=== PATIENT | male | born 1955 | race Caucasian/White ===

== ENCOUNTER 2019-12-27 17:32 | Emergency (ER) | payer MEDICARE, OTHER, SELFPAY ==
[2019-12-27 17:43] VITALS: BP 215/98; PULSE 89; RESP 12; TEMP 36.1; O2SAT 100; BMI 23.6
[2019-12-27] MEDS: LIDOCAINE 2% (UROJET) 5 ML GEL TOP (18:30)
--- NOTE | 2019-12-27 18:44 | ED_ITS ---
HPI - Male Genitourinary General Chief complaint: Urogenital-Male Stated complaint: trouble urinating Time Seen by Provider: 12/27/19 18:09 Source: patient and family Mode of arrival: Ambulatory History of Present Illness HPI Narrative: Patient here with . Complaints of urinary retention. Had a UroLift procedure done 2 days ago in [place] with Dr. zachary zelaya for Urology. Was instructed to remove the catheter yesterday at home. Since then had urinary retention. Blood pressure noted. No history of high blood pressure. Will recheck now that he has significant relief after insertion of Joe catheter. 800 mL out of urine. No complaints at this time. Currently is not on any antibiotics. Related Data Previous Rx's Medication Instructions Recorded tamsulosin 0.4 mg PO BEDTIME #7 cap 12/27/19 Allergies Allergy/AdvReac Type Severity Reaction Status Date / Time No Known Drug Allergies Allergy Verified 12/27/19 17:47 Review of Systems Review of Systems Narrative: GENERAL: Denies chills, fatigue, malaise, fever, sweats. HEENT: Denies sinus pain, ear pain, sore throat, difficulty swallowing, dizziness. RESPIRATORY: Denies dyspnea, cough, wheezing, hemoptysis, sputum. CARDIOVASCULAR: Denies chest pain, palpitations, orthopnea, edema, GASTROINTESTINAL: Denies nausea, vomiting, complains abdominal pain, denies diarrhea, constipation, melena. : Denies dysuria, frequency, incontinence, hematuria, complains of urinary ret ention. MUSCULOSKELETAL: denies weakness, joint pain, or bony pain SKIN: Denies rash, skin lesions NEUROLOGIC: Denies weakness, headache, numbness, change in speech, confusion, seizures, incoordination. PSYCHIATRIC: No concerning psychosocial issues. ROS Unobtainable: All systems reviewed & are unremarkable except as noted in HPI and below Patient History Social History Smoking Status: Never smoker Smoking Status: Never smoker Substance Use Type: does not use Exam Narrative Exam Narrative: GENERAL: patient appears stated age. Well-nourished, well- developed patient, in no distress, not toxic, pants are off HEAD: Atraumatic. Normocephalic. EYES: Pupils equal round and reactive. Extraocular motions intact. No scleral icterus. No injection or drainage. ENT: Nose without bleeding, purulent drainage. Throat without erythema, tonsillar hypertrophy or exudate. Airway patent. NECK: Trachea midline. Non tender CARDIOVASCULAR: Regular rate and rhythm without murmurs, gallops, or rubs. RESPIRATORY: Clear to auscultation. Breath sounds equal bilaterally. No wheezes, rales, or rhonchi. GASTROINTESTINAL: Abdomen soft, non-tender, nondistended. : Joe catheter in place. No blood at meatus. Nontender suprapubic region. 800 mL of urine in the Joe catheter bag EXTREMITIES: No edema or joint tenderness. BACK: Nontender without deformity or crepitance. No flank tenderness. NEURO: AOx4. SKIN: No rash or erythema of visible areas PSYCH: Not anxious, is cooperative Initial Vital Signs Initial Vital Signs: Vital Signs Temperature 97.0 F L 12/27/19 17:43 Pulse Rate 89 12/27/19 17:43 Respiratory Rate 12 12/27/19 17:43 Blood Pressure 215/98 H 12/27/19 17:43 Pulse Oximetry 100 12/27/19 17:43 Course Orders Ordered: ED Orders 12/27/19 18:35 Urinalysis and Microscopic Stat Discontinued Medications Ciprofloxacin (Cipro) 500 mg PO NOW ONE Stop: 12/27/19 19:57 Last Admin: 12/27/19 20:34 Dose: 500 mg Documented by: VIVIANA Lidocaine HCl (Urojet) 5 ml TOP NOW ONE Stop: 12/27/19 17:49 Last Admin: 12/27/19 18:30 Dose: 5 ml Documented by: IDANIA Tamsulosin HCl (Flomax) 0.4 mg PO NOW ONE Stop: 12/27/19 20:04 Last Admin: 12/27/19 20:34 Dose: 0.4 mg Documented by: VIVIANA Reevaluation(s) Reevaluation #1: Blood pressure improved. Pain-free at this time 146/79 Time: 20:00 Consultations Consultation #1: Spoke with Urology on-call , dr powell, give 1 dose of Cipro and follow up on Monday Time: 20:01 Vital Signs Vital signs: Vital Signs - 8 hr 12/27/19 20:37 Temperature 98.2 F Pulse Rate 78 Respiratory Rate 16 Blood Pressure 140/79 Pulse Oximetry 98 MDM - Male Genitourinary Differential Diagnosis Differential diagnosis: Likely urinary tract infection, acute retention of urine and other Lab Data Labs: Lab Results 12/27/19 Range/Units 18:35 Urine Color [place] Urine Appearance Clear Urine pH TNP Ur Specific [place] TNP Urine Protein TNP Urine Glucose (UA) TNP Urine Ketones TNP Urine Occult Blood TNP Urine Nitrate TNP Urine Bilirubin TNP Urine Urobilinogen TNP Ur Leukocyte Esterase TNP Urine RBC 5-10/hpf H (0-5/HPF) Urine WBC 1-5/hpf (0-5/HPF) Ur Squamous Epith Cells 0-1 /hpf (0-5/HPF) Amorphous Sediment 1+ Urine Bacteria Occasional (0-1) (None) Ur Culture Indicated? Cult not indicated MDM Narrative Medical decision making narrative: appropriate for d/c...has f/u on monday Discharge Plan Departure Patient Disposition: Home Clinical Impression: Acute retention of urine Discharge Date/Time: 12/27/19 20:40 Instructions: How to Care for Your Joe Catheter -- Male, DI for Urinary Retention in Men Activity Restrictions/Additional Instructions: Call your urologist office on Monday for office recheck and instructions how to remove the Joe catheter. Return if worse. Keep well hydrated. Return if any questions concerns Prescriptions: New tamsulosin 0.4 mg capsule 0.4 mg PO BEDTIME Qty: 7 RF: 0 Referrals: Tommy Clark MD [Primary Care Provider] -
[2019-12-27 19:12] LABS: Appearance Urine UA CLEAR
[2019-12-27 19:13] LABS: Color Urine UA ORANGE
[2019-12-27 19:20] LABS: Amorphous Sediment Urine 1+; Bacteria Urine Occasional (0-1); RBC Urine 5-10/HPF (0-5/HPF); Squamous Epithelial Cell Urine 0-1 /HPF (0-5/HPF); WBC Urine 1-5/HPF (0-5/HPF)
[2019-12-27 19:21] LABS: Culture Indicated Urine Cult Not Indicated
[2019-12-27] MEDS: TAMSULOSIN 0.4 MG CAPSULE PO (20:34)
[2019-12-27] MEDS: CIPROFLOXACIN 500 MG TABLET PO (20:34)
[2019-12-27 20:37] VITALS: BP 140/79; PULSE 78; RESP 16; TEMP 36.8; O2SAT 98
--- NOTE | 2019-12-27 20:38 | PC.NURSE ---
Joe bag changed to leg bag prior to discharge.
== END 2019-12-27 20:40 | disposition home or self-care (01) ==
PROVIDERS: Emergency Provider Emergency Medicine; PCP Urology
DX: R33.9 Retention of urine, unspecified (principal)
CPT/HCPCS: 51701; 51798; 81001; 99283; 99284

== ENCOUNTER → 2023-04-10 15:02 | Outpatient (CLI) | payer MEDICARE, OTHER, SELFPAY ==
[2023-04-10 18:08] LABS: Prostate Specific Antigen Scrn 6.62 ng/mL (0.1-4.0)
== END ==
PROVIDERS: Referring Provider Urology; Visit Provider Urology
DX: Z12.5 Encounter for screening for malignant neoplasm of prostate (principal); N39.41 Urge incontinence; K59.00 Constipation, unspecified; R35.1 Nocturia; R35.0 Frequency of micturition; R39.9 Unspecified symptoms and signs involving the genitourinary system; Z77.22 Contact with and (suspected) exposure to environmental tobacco smoke (acute) (chronic); Z87.442 Personal history of urinary calculi; Z98.890 Other specified postprocedural states; Z87.19 Personal history of other diseases of the digestive system
CPT/HCPCS: 36415; 81002; 99214; G0103

== ENCOUNTER → 2023-04-12 12:19 | Outpatient (CLI) | payer MEDICARE, OTHER, SELFPAY ==
[2023-04-15 00:56] LABS: PSA Free % 12.3 % (.)
== END ==
LOC: LAB 12:21
PROVIDERS: PCP Student in an Organized Health Care Education/Training Program; Referring Provider Urology; Visit Provider Urology
DX: Z98.890 Other specified postprocedural states (principal); R97.20 Elevated prostate specific antigen [PSA]
CPT/HCPCS: 36415; 84153; 84154

== ENCOUNTER 2023-04-18 07:46 | Day surgery (SDC) | payer MEDICARE, OTHER, SELFPAY ==
[2023-04-13 14:47] VITALS: BMI 23.6
[2023-04-18 08:03] VITALS: BMI 23.6
[2023-04-18 08:23] VITALS: BP 153/88; PULSE 66; RESP 12; TEMP 36.6; O2SAT 100
[2023-04-18] MEDS: LACTATED RINGERS 1,000 ML 42 ML IV (08:24)
[2023-04-18] MEDS: ACETAMINOPHEN 325 MG TABLET 975 MG PO (08:26)
--- NOTE | 2023-04-18 09:04 | PM.PREOP ---
Pre-operative Note COVID-19 COVID-19 status: Not tested Interval Note History & Physical reviewed/Exam performed by Physician: Yes Changes to H&P: No
[2023-04-18] MEDS: CEFAZOLIN 2 GM/100 ML PREMIX 100 ML IV (09:28)
--- NOTE | 2023-04-18 09:35 | SUR.OPER ---
Lithotomy on padded OR bed, head on pillow, arms secured on padded arm boards at <90 degrees abduction. Legs secured in padded yellow fins stirrups.
--- NOTE | 2023-04-18 09:43 | P.OP_ITS ---
Procedure & Clinicians Procedure: Cystoscopy Same procedure as scheduled: Yes Indications: This 67-year-old male who has had a UroLift x2 has had worsening lower urinary tract symptoms including outlet obstructive symptoms and irritative symptoms. He voiced intolerance of office cystoscopy that it is incredibly painful and he presents at this time for cystoscopy under anesthesia. This is done to evaluate his lower urinary tract given his previous procedures and with an eye toward future interventions. Surgeon: Suresh Jeffers Click Yes if Unassisted: Yes Anesthesia Type: General Operative Notes Findings: Findings: Urethral meatus was normal though too small to accept the 22 [place] scope so was dilated to 26 [place]. The urethra was normal along its length the sphincter was well coapted the prostate itself exhibited moderate obstructive character with a median lobe. Ureteral orifices in normal position with clear efflux. There was severe trabeculation banding diverticula cellules and in the floor of the bladder almost a neurogenic appearance. No mucosal lesions or abnormalities were noted, no stones, no fistula. Closure Type: not applicable Specimen(s): none sent Prosthetic devices, grafts, tissues, transplants, or devices: None Estimated Blood Loss (mL): 0 Blood products transfused: none Procedure in detail: Procedure in detail: After informed consent was obtained, the patient was identified brought the operating room and placed in supine position on table where anesthesia was induced maintained. Ensuring an adequate level of anesthesia of the patient was transitioned to the lithotomy position where he was prepped, draped,. For Transurethral procedure. After prepping, draping, ensuring an adequate level anesthesia and time-out and administration of antibiotics and attempt was made to pass a 22 [place] cystoscope through the urethra. The meatus was too small and was gently dilated from 20-26 [place]. Then it easily accepted the scope the scope was then passed through the urethra prostate and into the bladder where cystoscopy was performed with the 30 and 70 degree lens. With the findings in hand the bladder was drained the scope was removed and the patient was awakened having tolerated the procedure well. He will be transferred to the postanesthesia care unit for recovery and then follow-up my office in approximately 10 days. There were no complications. Complications: none Post-operative Condition: stable Disposition: PACU Plan for aftercare: Follow-up my office in approximately 10 days to discuss findings
[2023-04-18 09:52] VITALS: BP 103/57; PULSE 68; RESP 12; TEMP 36.4; O2SAT 97
[2023-04-18 09:57] VITALS: BP 114/67; PULSE 67; RESP 12; TEMP 36.4; O2SAT 98
[2023-04-18 10:02] VITALS: BP 101/61; PULSE 68; RESP 14; TEMP 36.4; O2SAT 98
[2023-04-18 10:18] VITALS: BP 131/75; PULSE 62; RESP 18; TEMP 36.4; O2SAT 99
== END 2023-04-18 10:35 | disposition home or self-care (01) ==
PROVIDERS: PCP Student in an Organized Health Care Education/Training Program; Referring Provider Urology; Visit Provider Urology
PROC: 0TJB8ZZ Inspection of Bladder, Via Natural or Artificial Opening Endoscopic (ICD-10-PCS; CPT 52000; principal; 2023-04-18 09:15)
DX: N40.1 Benign prostatic hyperplasia with lower urinary tract symptoms (principal); N39.41 Urge incontinence; R35.0 Frequency of micturition; Z77.22 Contact with and (suspected) exposure to environmental tobacco smoke (acute) (chronic); N35.911 Unspecified urethral stricture, male, meatal; N32.3 Diverticulum of bladder
CPT/HCPCS: 52281; J0690; J1100; J2405; J2704; J3010

== ENCOUNTER → 2023-05-05 13:04 | Outpatient (CLI) | payer MEDICARE, OTHER, SELFPAY ==
--- NOTE | 2023-05-05 13:05 | DI.MRI.S_ITS ---
PROCEDURE: MR PELVIC PROSTATE PROTOCOL INDICATIONS: Elevated PSA TECHNIQUE: Coronal HASTE, axial T1 FSE with fat saturation, 3-plane nonbreath-hold T2 FSE. After the administration of contrast, dynamic axial, delayed axial and coronal VIBE or 2-D FLASH with fat saturation through the pelvis. Diffusion weighted imaging and ADC was performed. COMPARISON: None. FINDINGS: Image quality: Nondiagnostic diffusion-weighted images due to metallic artifact from Urolift device. Prostate: Prostate measures 4.7 x 3.4 x 4.5 cm. Estimated volume is 37 cc. Transitional zone heterogenous nodules are present, either well encapsulated or mostly encapsulated, compatible with PI-RADS 1 or 2 likely BPH nodules. Mildly T2 hypointense heterogenous striated appearance of the peripheral zone is commonly seen with current or prior prostatitis, PI-RADS 2. These findings can obscure small cancers. The seminal vesicles appear clear. Genitourinary system: Trabeculated bladder with small diverticula, likely related to chronic obstruction. Bowel and peritoneum: Colonic diverticula. No pathologic ascites. Nodes and vessels: No aneurysmal vessel is identified. Soft tissues: Suspected small fat containing inguinal hernias. Bones: Degenerative changes. IMPRESSION: Nondiagnostic diffusion images due to artifact from Urolift device. Within the limitations of only using T2 weighted MR images, overall classification is PI-RADS 2. Suspected sequelae of BPH and prostatitis. Continued PSA surveillance and repeat MRI may be obtained as clinically indicated Other findings as above. Dictated by: Wes Dalal M.D. on 05/05/2023 at 14:32 Approved by: Wes Dalal M.D. on 05/05/2023 at 14:38
== END ==
PROVIDERS: PCP Student in an Organized Health Care Education/Training Program; Referring Provider Urology; Visit Provider Urology
DX: N40.2 Nodular prostate without lower urinary tract symptoms (principal); K57.90 Diverticulosis of intestine, part unspecified, without perforation or abscess without bleeding; N32.89 Other specified disorders of bladder; N32.3 Diverticulum of bladder; R97.20 Elevated prostate specific antigen [PSA]; N39.41 Urge incontinence; R39.9 Unspecified symptoms and signs involving the genitourinary system; Z87.442 Personal history of urinary calculi; Z77.22 Contact with and (suspected) exposure to environmental tobacco smoke (acute) (chronic); Z98.890 Other specified postprocedural states
CPT/HCPCS: 72197; 99214

== ENCOUNTER → 2023-07-27 14:19 | Outpatient (CLI) | payer MEDICARE, OTHER, SELFPAY | LOC: LAB 14:20 | PROVIDERS: PCP Family Medicine Sports Medicine; Referring Provider Urology; Visit Provider Urology | DX: R97.20 Elevated prostate specific antigen [PSA] (principal) | CPT/HCPCS: 84153; 84154 ==

== ENCOUNTER → 2023-09-06 14:08 | Outpatient (CLI) | payer MEDICARE, OTHER, SELFPAY | PROVIDERS: PCP Family Medicine Sports Medicine; Visit Provider Nurse Practitioner Family | DX: R30.0 Dysuria (principal) | CPT/HCPCS: 87077; 87086 ==

== ENCOUNTER → 2023-09-26 14:12 | Outpatient (CLI) | payer MEDICARE, OTHER, SELFPAY | PROVIDERS: PCP Family Medicine Sports Medicine; Visit Provider Urology | DX: N32.81 Overactive bladder (principal); N41.0 Acute prostatitis; N30.00 Acute cystitis without hematuria; R97.20 Elevated prostate specific antigen [PSA]; R30.0 Dysuria; R39.9 Unspecified symptoms and signs involving the genitourinary system; Z87.442 Personal history of urinary calculi; Z98.890 Other specified postprocedural states; Z77.22 Contact with and (suspected) exposure to environmental tobacco smoke (acute) (chronic) | CPT/HCPCS: 51798; 81002; 87086; 99214 ==

== ENCOUNTER → 2023-11-16 11:30 | Outpatient (CLI) | payer MEDICARE, OTHER, SELFPAY ==
[2023-11-17 13:15] LABS: PSA Free % 11.5 % (.); PSA, Total 5.4 ng/mL (0.0-4.0)
== END ==
PROVIDERS: PCP Family Medicine Sports Medicine; Referring Provider Urology; Visit Provider Urology
DX: R97.20 Elevated prostate specific antigen [PSA] (principal)
CPT/HCPCS: 36415; 84153; 84154

== ENCOUNTER → 2024-01-18 13:38 | Outpatient (CLI) | payer MEDICARE, OTHER, SELFPAY | PROVIDERS: PCP Family Medicine Sports Medicine; Visit Provider Urology | DX: R39.9 Unspecified symptoms and signs involving the genitourinary system (principal) | CPT/HCPCS: 87086 ==

== ENCOUNTER → 2024-05-14 12:56 | Outpatient (CLI) | payer MEDICARE, OTHER, SELFPAY ==
[2024-05-14 14:55] LABS: Prostate Specific Antigen 5.24 ng/mL (0.10-4.00)
== END ==
PROVIDERS: PCP Family Medicine Sports Medicine; Referring Provider Urology; Visit Provider Urology
DX: R97.20 Elevated prostate specific antigen [PSA] (principal); N30.00 Acute cystitis without hematuria; N41.0 Acute prostatitis
CPT/HCPCS: 36415; 84153

== ENCOUNTER → 2024-08-06 13:59 | Outpatient (CLI) | payer MEDICARE, OTHER, SELFPAY | PROVIDERS: PCP Family Medicine Sports Medicine; Referring Provider Family Medicine Sports Medicine; Visit Provider Urology | DX: R97.20 Elevated prostate specific antigen [PSA] (principal) | CPT/HCPCS: 36415; 84153; 84154 ==

== ENCOUNTER → 2025-01-14 13:01 | Outpatient (CLI) | payer MEDICARE, OTHER, SELFPAY ==
[2025-01-16 06:36] LABS: PSA, Total 6.0 ng/mL (0.0-4.0)
== END ==
PROVIDERS: Referring Provider Urology; Visit Provider Urology
DX: R97.20 Elevated prostate specific antigen [PSA] (principal)
CPT/HCPCS: 36415; 84153; 84154

== ENCOUNTER 2025-02-11 10:15 | Day surgery (SDC) | payer MEDICARE, OTHER, SELFPAY ==
[2025-01-27 14:12] VITALS: BMI 23.6
[2025-02-11 10:45] VITALS: BP 186/92; PULSE 74; RESP 16; TEMP 36.9; O2SAT 97
--- NOTE | 2025-02-11 12:27 | SUR.OPER ---
Lateral on stretcher head on pillow, legs drawn to chest, position, blankets and pillows to patient comfort. Blankets over patient. Final positioning done by provider
[2025-02-11 12:42] VITALS: BP 121/65; PULSE 62; RESP 16; TEMP 36.2; O2SAT 96
--- NOTE | 2025-02-11 12:43 | PM.OP.1 ---
Operative Date/Time/Diagnoses Date of procedure: 02/11/25 Time of procedure: 12:30 Pre-op diagnosis: Elevated PSA Post-op diagnosis: same Procedure & Clinicians Procedure: Transrectal ultrasound guided prostate biopsy Same procedure(s) as scheduled: Yes Indications: 69 y/o M noted to have an elevated PSA, albeit relatively stable, in the absence of a FH of prostate cancer and a benign IRINA in August of 2024. Discussed elevated PSA in detail and that an elevated PSA value does not represent cancer and that it can be elevated for a multitude of reasons (recent UTI, will catheterization, urinary obstruction, multiple ejaculations, colonoscopy, etc...). Also discussed that a TRUS prostate biopsy may not always identify prostate cancer that is present as it is a small sampling of the prostate gland and small foci of cancer may be missed. Lastly, discussed that some men may require multiple biopsies over several years in order to properly diagnose their prostate cancer. Discussed the risks of the procedure to include but not limited to pain, bleeding, infection, blood in the stool for several weeks, blood and/or blood clots within the urine for several weeks as well as bloody ejaculate for several months. Up to 1-2% of men may get an infection from their biopsy that is severe enough that they require admission to the hospital and administration of IV antibiotics. To mitigate this risk, he will use a bowel prep the night before and the morning of the procedure as well as take an antibiotic the morning before, the morning of and the morning after his biopsy. Discussed options moving forward to include repeating his PSA in 6 months (not recommended) vs a TRUS prostate biopsy. At this time, he would prefer to have a TRUS prostate biopsy performed under anesthesia. Surgeon: Rubén Aranda Assisted?: No Anesthesia Type: MAC +/- Operative Notes Findings: 46g prostate, smooth, symmetric, no nodularity Closure Type: not applicable Specimen(s): other (prostate biopsy) Applied: none Estimated Blood Loss (mL): 2 Blood products transfused: none Procedure in detail: Transrectal Ultrasound of the Prostate with Needle Biopsy: [id number] Indication: 69 y/o M noted to have an elevated PSA. Following informed consent, he was transitioned into the left lateral decubitus position. The ultrasound probe was then coated in lubrication and gently inserted into his rectum. A total of 10cc of 1% Lidocaine was used for local anesthetic throughout the procedure. Transrectal US images of his prostate were then performed and a volume of 47 cc was calculated. A total of 12 biopsies were taken from the prostate and submitted as six different pathologic specimens (right base, right mid, right apex, left base, left mid, left apex). Hemostasis was evaluated at the end of the procedure and noted to be excellent. He tolerated the procedure well without any complications and the ultrasound probe was gently removed from his rectum. Complications: none Post-operative Condition: stable Disposition: PACU Plan for aftercare: Discharge home from PACU. Will return to Urology clinic in 2-3 weeks for a pathology review.
[2025-02-11] MEDS: LIDOCAINE 1% 20 ML INJ (12:46)
[2025-02-11 12:47] VITALS: BP 121/65; PULSE 61; RESP 14; O2SAT 96
[2025-02-11 12:52] VITALS: BP 124/79; PULSE 65; RESP 16; O2SAT 96
[2025-02-11 12:54] VITALS: BP 129/75; PULSE 64; RESP 16; O2SAT 98
[2025-02-11] MEDS: LACTATED RINGERS 1,000 ML 42 ML IV (12:59)
== END 2025-02-11 13:35 | disposition home or self-care (01) ==
PROVIDERS: Referring Provider Urology; Visit Provider Urology
PROC: 0VJ43ZZ Inspection of Prostate and Seminal Vesicles, Percutaneous Approach (ICD-10-PCS; CPT 55876; principal; 2025-02-11 11:45)
DX: N40.1 Benign prostatic hyperplasia with lower urinary tract symptoms (principal); N13.8 Other obstructive and reflux uropathy; N32.81 Overactive bladder; R97.20 Elevated prostate specific antigen [PSA]; R39.12 Poor urinary stream; R33.8 Other retention of urine; R35.0 Frequency of micturition; R35.1 Nocturia
CPT/HCPCS: 55700; 76872; 76942; J2704; J7120